=== PATIENT | male | born 1980 | race Caucasian/White ===

== ENCOUNTER 2018-09-18 23:09 | Emergency (ER) | payer MEDICARE, MEDICAID ==
[2018-09-18] MEDS ORDERED: EPINEPHrine/Lidocaine/Tetracai 3 ML ML TOP STA (23:36)
--- NOTE | 2018-09-18 23:38 | EDM.PDOC ---
ED HPI GENERAL MEDICAL PROBLEM - General Chief Complaint: Head Injury Stated Complaint: HEAD INJURY FROM FALL Time Seen by Provider: 09/18/18 23:19 Source of Information: Reports: Patient, RN Notes Reviewed, Other (2 caregivers) History Limitations: Reports: Physical Impairment - History of Present Illness INITIAL COMMENTS - FREE TEXT/NARRATIVE: The patient has a history of cerebral palsy. He lives on his own in an apartment , however, has 24-hour staff. He is unable to walk, however, he is able to crawl and get into bed on his own. According to 2 caregivers who accompany the patient to the ED, patient was attempting to get into bed tonight, when he somehow slipped and fell, likely striking the left side of his face on the bed frame. There was no loss of consciousness, although the patient may have a headache. He presents with a laceration and scratch to the left side of his face. He is otherwise uninjured. The patient's last tetanus vaccination was within 10 years. The patient's PCP is Dr. German. His Neurologist is Dr. Sweet. Left Cheek Pain Score (Numeric/FACES): 5 - Related Data Allergies Allergy/AdvReac Type Severity Reaction Status Date / Time risperidone Allergy Cannot Verified 09/18/18 23:29 Remember salsalate [Salsalate] Allergy Cannot Verified 09/18/18 23:29 Remember Home Meds: Home Meds Baclofen 20 mg PO TID 10/26/13 [History] Fosinopril Sodium 10 mg PO DAILY 10/26/13 [History] LORazepam 1 mg PO ASDIRECTED 10/26/13 [History] LORazepam 1 mg PO ASDIRECTED PRN 10/26/13 [History] Multivitamin/Iron/Folic Acid [Sentry Tablet] 1 each PO DAILY 10/26/13 [History] Nitrofurantoin Macrocrystal [Macrodantin] 50 mg PO DAILY 10/26/13 [History] PARoxetine HCl [Paxil] 40 mg PO BEDTIME 10/26/13 [History] QUEtiapine [SEROquel] 25 mg PO TID 10/26/13 [History] Tretinoin TP DAILY 10/26/13 [History] levETIRAcetam [Keppra] 1,000 mg PO ASDIRECTED 10/26/13 [History] traZODone 50 mg PO ASDIRECTED 10/26/13 [History] Magnesium Oxide 400 mg PO BID #10 tab 10/28/13 [Rx] carBAMazepine [Carbamazepine] 200 mg PO Q6H #120 10/28/13 [Rx] Past Medical History Neurological History: Reports: Cerebral Palsy, Seizure, Other (See Below) ( Microcephaly. Severe intellectual disability.) Psychiatric History: Reports: Anxiety, Other (See Below) (Disruptive, aggressive behavior) Social & Family History - Tobacco Use Smoking Status *Q: Never Smoker - Alcohol Use Alcohol Use History: No - Recreational Drug Use Recreational Drug Use: No - Living Situation & Occupation Living situation: Reports: Single, Alone (with 24-hour staff) Occupation: Disabled ED ROS GENERAL - Review of Systems Review Of Systems: ROS reveals no pertinent complaints other than HPI. ED EXAM, HEAD INJURY - Physical Exam Exam: See Below Exam Limited By: No Limitations General Appearance: Alert, WD/WN, No Apparent Distress Head: Normocephalic, Facial Lacerations (There is a 2.0 cm linear laceration within a longer linear scratch across the left side of the patient's face. The laceration is located inferior and lateral to his left high, over the lateral aspect of the zygomatic arch. No associated facial swelling. The wound is not currently bleeding.) Eyes: Bilateral Eye: EOMI, Normal Inspection Ears: Normal External Exam Nose: Normal Inspection Throat/Mouth: Normal Inspection, Normal Lips, Normal Voice, No Airway Compromise Neck: Full Range of Motion, Normal Alignment, Normal Inspection Respiratory: No Respiratory Distress, Lungs Clear, Normal Breath Sounds, No Accessory Muscle Use Cardiovascular: Normal Peripheral Pulses, Regular Rate, Rhythm, No Edema, No Gallop, No JVD, No Murmur, No Rub GI/Abdominal Exam: Normal Bowel Sounds, Soft, Non-Tender, No Organomegaly, No Distention, No Abnormal Bruit, No Mass (Male) Exam: Deferred Rectal (Males) Exam: Deferred Back Exam: Full Range of Motion, Normal Inspection, NT Extremities: Normal Inspection, Normal Capillary Refill Neurologic: Alert Skin: Normal Color, Warm/Dry ED LACERATION/WOUND & GUSTAVO PROC - Laceration/Wound Repair Left Face Lac/wound length in cm: 2.0 Appearance: Subcutaneous, Linear, Clean Distal NVT: Neuro & Vascular Intact, No Tendon Injury Anesthetic Type: Local Local Anesthesia - Lidocaine (Xylocaine): 1% with EPI (50:50 admixture) Local Anesthesia - Bupivicaine (Marcaine): 0.5% Plain (50:50 admixture) Local Anesthetic Volume: 2cc Skin Prep: Providone-Iodine (Betadine) Exploration/Debridement/Repair: Wound Explored, In a Bloodless Field, Explored to Base, No Foreign Material Found, Wound Margins Revised Closed with: Sutures Suture Size: 4-0 # of Sutures: 6 Suture Type: Nylon (Ethilon), Running, Simple Drain Placement: No Sterile Dressing Applied: None Tetanus Status Addressed: Yes Complications: No Course - Vital Signs Last Recorded V/S: Last Vital Signs Temp 36.6 C 09/18/18 23:26 Pulse 88 09/18/18 23:26 Resp 16 09/18/18 23:26 BP 134/77 09/18/18 23:26 Pulse Ox 95 09/18/18 23:26 - Orders/Labs/Meds Meds: Medications Discontinued Medications Generic Name Dose Route Start Last Admin Trade Name Shama PRGlory Reason Stop Dose Admin Bupivacaine HCl 10 ml 09/19/18 00:18 09/19/18 00:53 Sensorcaine-Mpf 0.5% INJECT 09/19/18 00:19 10 ml ONETIME ONE Administration Lidocaine/Epinephrine 20 ml 09/19/18 00:18 09/19/18 00:53 Xylocaine 1% With Epinephrine 1:100,000 INJECT 09/19/18 00:19 20 ml ONETIME ONE Administration Lidocaine/Tetracaine 2 ml 09/18/18 23:36 09/18/18 23:46 Let Soln TOP 09/18/18 23:37 2 ml ONETIME STA Administration - Re-Assessments/Exams Free Text/Narrative Re-Assessment/Exam: 09/18/18 23:37 The patient is a 2 cm laceration to the left side of his face, but will require suturing. I have ordered topical LET to hopefully avoid having to use injectable anesthetic. 09/19/18 00:43 There was inadequate anesthesia following topical LET, therefore local anesthetic, consisting of a 50:50 admixture of lidocaine 1% with epinephrine and bupivacaine 0.5% without epinephrine, was locally injected. The wound was then closed with 6 running sutures, using 4-0 Ethilon. The patient tolerated the procedure well. One of the staff members was curious whether or not the patient could have a concussion. By history, the patient fell only a short distance - likely less than a foot, therefore by mechanism alone, the patient could not have suffered a concussion. That being said, the diagnosis of concussion is a clinical, not radiographic, diagnosis, and given the patient's pre-existing impaired mental capacity, it would be very difficult, if not impossible, to determine if the patient had clinical findings of a concussion. Given the mechanism of injury and minimal physical findings, a CT scan of the head is not indicated. Departure - Departure Time of Disposition: 00:46 Disposition: Home, Self-Care 01 Condition: Good Clinical Impression: Fall in home, Laceration of face - Discharge Information *PRESCRIPTION DRUG MONITORING PROGRAM REVIEWED*: Not Applicable *COPY OF PRESCRIPTION DRUG MONITORING REPORT IN PATIENT JOSHUA: Not Applicable Instructions: Laceration Care, Adult Referrals: Carloz Clark MD [Primary Care Provider] - Forms: ED Department Discharge Additional Instructions: Kunal was seen in the emergency room after falling while getting in bed, cutting the left side of his face. The laceration was closed with 6 simple running sutures. Keep the wound clean with ordinary soap and water when he bathes, however, the wound should not be soaked, such as in a bath or swimming. We do not recommend that you apply an antibiotic ointment. You may cover the wound with a Band-Aid if he is picking at it, otherwise, it does not need to be covered. The sutures should be ready for removal on 09/26/2018. The sutures can be removed at a walk-in clinic, by a nurse at his doctor's office, or in the ER. Once his wound has completely healed, you may apply a sunblock to the wound whenever he goes outside, for 6 months, to help minimize the appearance of a scar. If any other problems, please do not hesitate to return Kunal to the ER.
[2018-09-19] MEDS ORDERED: Bupivacaine 0.5% 10 ML SDV INJECT ONE (00:18)
[2018-09-19] MEDS ORDERED: Lidocaine 1% with EPINEPHrine 1:100,000 20 ML MDV INJECT ONE (00:18)
== END 2018-09-19 01:06 | disposition home or self-care (01) ==
LOC: JD.ED 23:09
DX: S01.81XA Laceration without foreign body of other part of head, initial encounter (principal); F41.9 Anxiety disorder, unspecified; G80.9 Cerebral palsy, unspecified; Z88.8 Allergy status to other drugs, medicaments and biological substances; W06.XXXA Fall from bed, initial encounter; Z79.899 Other long term (current) drug therapy
CPT/HCPCS: 12011; 99283; J3490; 99282

== ENCOUNTER 2024-02-06 13:13 | Inpatient (IN) | payer MEDICARE, MEDICAID ==
[2024-02-06 14:55] LABS: HEMATOCRIT 41.4 % (42.0-52.0); HEMOGLOBIN 13.7 gm/dl (14.0-18.0); MEAN CORPUSCULAR HEMOGLOBIN 30.9 pg (28.0-32.0); MEAN CORPUSCULAR HGB CONC 33.1 g/dl (32.0-36.0); MEAN CORPUSCULAR VOLUME 93.5 fl (83.0-99.0); MEAN PLATELET VOLUME 10.2 fl (9.4-12.4); PLATELET COUNT,PLT 227 K/mm3 (150-400); RED BLOOD CELL COUNT 4.43 M/mm3 (4.52-5.90); WHITE BLOOD CELL COUNT,WBC 8.01 K/mm3 (3.9-11.3)
[2024-02-06 15:01] LABS: INR 0.97; PROTHROMBIN TIME 10.3 SECONDS (9.7-12.0)
[2024-02-06 15:10] LABS: CORONAVIRUS COVID-19 NAA NEGATIVE (NEGATIVE); INFLUENZA A NAA NEGATIVE (NEGATIVE); RESPIRATORY SYNCYTIAL VIR NAA NEGATIVE (NEGATIVE)
[2024-02-06 15:12] LABS: LACTIC ACID 0.5 mmol/L (0.4-2.0)
[2024-02-06 15:18] LABS: A/G RATIO 0.8 (1-2); ALBUMIN 3.2 g/dl (3.4-5.0); ANION GAP 12.3 (5-15); BILIRUBIN TOTAL 0.4 mg/dL (0.2-1.0); BUN/CREATININE RATIO 14.4 (14-18); C-REACTIVE PROTEIN 14.38 mg/dL (<0.30); CALCIUM 9.3 mg/dL (8.5-10.1); CREATININE 1.8 mg/dL (0.7-1.3); EST CRCL DRUG DOSING (CG) 47.75 mL/min; POTASSIUM,K 4.3 mEq/L (3.5-5.1); PROTEIN TOTAL,TP 7.3 g/dl (6.4-8.2)
[2024-02-06] MEDS: Sodium Chloride 0.9% 1,000 ML IV ONE (15:26)
[2024-02-06] MEDS: Sodium Chloride 0.9% 10 ML Syringe FLUSH PRN (15:27)
[2024-02-06 15:54] LABS: BAND PERCENT MAN 2 % (0-10); BASOPHILS PERCENT MAN 1 (0.2-1.2); EOSINOPHILS PERCENT MAN 0 % (0.8-7.0); LYMPHOCYTES % ATYPICAL MANUAL 0 %; LYMPHOCYTES PERCENT MAN 7 % (20-40); MONOCYTES PERCENT MAN 5 % (2-10)
[2024-02-06 16:00] LABS: PLATELET COUNT ESTIMATE ADEQUATE
[2024-02-06] MEDS: cefTRIAXone 2 GM in Sodium Chloride 0.9% 100 ML IV ONE (16:38)
[2024-02-06] MEDS ORDERED: Non-Formulary Medication 1 Each (Baclofen [Baclofen] 20 MG Tablet) PO SCH (20:00)
[2024-02-06] MEDS ORDERED: Baclofen 10 MG Tab PO SCH (20:10)
[2024-02-06] MEDS: traZODone 50 MG Tab PO SCH (20:34)
[2024-02-06] MEDS: levETIRAcetam 500 MG Tab PO SCH (20:35)
[2024-02-06] MEDS: PARoxetine 20 MG Tab PO SCH (20:35)
[2024-02-06] MEDS: QUEtiapine 25 MG Tab PO SCH (20:35)
[2024-02-06] MEDS: Baclofen 10 MG Tab PO SCH (23:28)
[2024-02-07 00:33] LABS: APPEARANCE,URINE CLEAR (Clear); BILIRUBIN,URINE NEGATIVE (Negative); COLOR,URINE YELLOW (Yellow); GLUCOSE,URINE NEGATIVE (Negative); KETONES,URINE NEGATIVE (Negative); LEUKOCYTE ESTERASE,URINE TRACE (Negative); NITRITE,URINE NEGATIVE (Negative); OCCULT BLOOD,URINE NEGATIVE (Negative); PROTEIN,URINE 2+ (Negative); UROBILINOGEN,URINE 0.2 (0.2-1.0)
[2024-02-07 00:50] LABS: BACTERIA,URINE RARE /hpf (FEW); EPITHELIAL CELLS,URINE 0-5 /hpf (0-5); MUCUS,URINE NOT SEEN /hpf (FEW); RBC,URINE NOT SEEN /hpf (0-5); WBC,URINE 0-5 /hpf (0-5)
[2024-02-07] MEDS: Levothyroxine 25 MCG Tab PO SCH (06:08)
[2024-02-07] MEDS: Baclofen 10 MG Tab PO SCH (08:13)
[2024-02-07] MEDS: Allopurinol 100 MG Tab PO SCH (09:05)
[2024-02-07] MEDS: Colchicine 0.6 MG Tab PO SCH (09:05)
[2024-02-07] MEDS: Lisinopril 10 MG Tab PO SCH (09:07)
[2024-02-07] MEDS: carBAMazepine 200 MG Tab PO SCH (09:18)
[2024-02-07 11:30] LABS: BASOPHILS PERCENT AUTO 0.3 % (0.0-1.0); EOSINOPHILS ABSOLUTE AUTO 0.1 K/mm3 (0.0-0.4); EOSINOPHILS PERCENT AUTO 0.7 % (0.0-6.0); HEMATOCRIT 37.9 % (42.0-52.0); HEMOGLOBIN 12.3 gm/dl (14.0-18.0); IMMATURE GRAN ABSOLUTE AUTO 0.04 K/mm3 (0.00-0.05); IMMATURE GRAN PERCENT AUTO 0.4 % (0.0-0.4); LYMPHOCYTES ABSOLUTE AUTO 1.2 K/mm3 (1.0-4.8); LYMPHOCYTES PERCENT AUTO 11.4 % (24.0-44.0); MEAN CORPUSCULAR HEMOGLOBIN 30.4 pg (28.0-32.0); MEAN CORPUSCULAR HGB CONC 32.5 g/dl (32.0-36.0); MEAN CORPUSCULAR VOLUME 93.6 fl (83.0-99.0); MEAN PLATELET VOLUME 9.8 fl (9.4-12.4); MONOCYTES ABSOLUTE AUTO 1.3 K/mm3 (0.0-0.8); MONOCYTES PERCENT AUTO 11.8 % (0.0-8.0); NEUTROPHILS ABSOLUTE AUTO 8.2 K/mm3 (1.8-7.7); NEUTROPHILS PERCENT AUTO 75.4 % (41.0-71.0); PLATELET COUNT,PLT 209 K/mm3 (150-400); RED BLOOD CELL COUNT 4.05 M/mm3 (4.52-5.90); WHITE BLOOD CELL COUNT,WBC 10.85 K/mm3 (3.9-11.3)
[2024-02-07] MEDS: Sodium Chloride 0.9% 1,000 ML IV ONE ×2 (11:44→21:07)
[2024-02-07 11:50] LABS: A/G RATIO 0.7 (1-2); ALBUMIN 2.6 g/dl (3.4-5.0); ANION GAP 11.1 (5-15); BILIRUBIN TOTAL 0.4 mg/dL (0.2-1.0); BUN/CREATININE RATIO 16.3 (14-18); C-REACTIVE PROTEIN 12.9 mg/dL (<0.30); CALCIUM 8.8 mg/dL (8.5-10.1); CREATININE 1.6 mg/dL (0.7-1.3); EST CRCL DRUG DOSING (CG) 53.72 mL/min; POTASSIUM,K 4.1 mEq/L (3.5-5.1); PROTEIN TOTAL,TP 6.5 g/dl (6.4-8.2)
[2024-02-07] MEDS: Acetaminophen 325 MG Tab PO ONE (15:12)
[2024-02-07] MEDS: LORazepam 2 MG/ML SDV IVPUSH ONE (16:11)
[2024-02-07] MEDS: LORazepam 2 MG/ML SDV ONE ×2 (16:30→16:31)
[2024-02-07] MEDS: cefTRIAXone 2 GM in Sodium Chloride 0.9% 100 ML IV SCH (16:38)
[2024-02-07 16:40] LABS: BASOPHILS ABSOLUTE AUTO 0.1 K/mm3 (0.0-0.2); BASOPHILS PERCENT AUTO 0.5 % (0.0-1.0); EOSINOPHILS ABSOLUTE AUTO 0.2 K/mm3 (0.0-0.4); EOSINOPHILS PERCENT AUTO 1.3 % (0.0-6.0); HEMATOCRIT 39.9 % (42.0-52.0); HEMOGLOBIN 12.8 gm/dl (14.0-18.0); IMMATURE GRAN ABSOLUTE AUTO 0.06 K/mm3 (0.00-0.05); IMMATURE GRAN PERCENT AUTO 0.4 % (0.0-0.4); LYMPHOCYTES ABSOLUTE AUTO 2.5 K/mm3 (1.0-4.8); LYMPHOCYTES PERCENT AUTO 17.9 % (24.0-44.0); MEAN CORPUSCULAR HEMOGLOBIN 30.5 pg (28.0-32.0); MEAN CORPUSCULAR HGB CONC 32.1 g/dl (32.0-36.0); MEAN PLATELET VOLUME 9.7 fl (9.4-12.4); MONOCYTES ABSOLUTE AUTO 1.5 K/mm3 (0.0-0.8); MONOCYTES PERCENT AUTO 10.9 % (0.0-8.0); NEUTROPHILS ABSOLUTE AUTO 9.8 K/mm3 (1.8-7.7); PLATELET COUNT,PLT 239 K/mm3 (150-400); WHITE BLOOD CELL COUNT,WBC 14.18 K/mm3 (3.9-11.3)
[2024-02-07 17:14] LABS: A/G RATIO 0.7 (1-2); ALBUMIN 2.8 g/dl (3.4-5.0); ANION GAP 20.8 (5-15); BILIRUBIN TOTAL 0.4 mg/dL (0.2-1.0); CALCIUM 8.9 mg/dL (8.5-10.1); EST CRCL DRUG DOSING (CG) 42.98 mL/min; POTASSIUM,K 3.8 mEq/L (3.5-5.1); PROTEIN TOTAL,TP 6.7 g/dl (6.4-8.2)
[2024-02-07] MEDS: Sodium Chloride 0.9% 500 ML IV ONE (18:45)
[2024-02-07] MEDS: Acetaminophen 325 MG Tab PO PRN (23:27)
[2024-02-07] MEDS: Doxycycline 100 MG in Sodium Chloride 0.9% 100 ML IV SCH (23:35)
[2024-02-07] MEDS: Sodium Chloride 0.9% 1,000 ML IV SCH (23:38)
[2024-02-08] MEDS: Albuterol/Ipratropium 3.0-0.5 MG/3 ML Neb Soln NEB PRN (00:22)
[2024-02-08] MEDS ORDERED: LORazepam 2 MG/ML SDV IVPUSH PRN ×2 (01:59→09:37)
[2024-02-08] MEDS: Acetaminophen 325 MG Tab PO ONE (02:14)
[2024-02-08 04:52] LABS: BASOPHILS PERCENT AUTO 0.3 % (0.0-1.0); EOSINOPHILS ABSOLUTE AUTO 0.2 K/mm3 (0.0-0.4); EOSINOPHILS PERCENT AUTO 1.9 % (0.0-6.0); HEMATOCRIT 36.1 % (42.0-52.0); HEMOGLOBIN 11.6 gm/dl (14.0-18.0); IMMATURE GRAN ABSOLUTE AUTO 0.05 K/mm3 (0.00-0.05); IMMATURE GRAN PERCENT AUTO 0.4 % (0.0-0.4); LYMPHOCYTES ABSOLUTE AUTO 1.6 K/mm3 (1.0-4.8); LYMPHOCYTES PERCENT AUTO 13.7 % (24.0-44.0); MEAN CORPUSCULAR HEMOGLOBIN 30.4 pg (28.0-32.0); MEAN CORPUSCULAR HGB CONC 32.1 g/dl (32.0-36.0); MEAN CORPUSCULAR VOLUME 94.5 fl (83.0-99.0); MEAN PLATELET VOLUME 10.4 fl (9.4-12.4); MONOCYTES ABSOLUTE AUTO 1.4 K/mm3 (0.0-0.8); MONOCYTES PERCENT AUTO 11.8 % (0.0-8.0); NEUTROPHILS ABSOLUTE AUTO 8.6 K/mm3 (1.8-7.7); NEUTROPHILS PERCENT AUTO 71.9 % (41.0-71.0); PLATELET COUNT,PLT 180 K/mm3 (150-400); RED BLOOD CELL COUNT 3.82 M/mm3 (4.52-5.90); WHITE BLOOD CELL COUNT,WBC 11.99 K/mm3 (3.9-11.3)
[2024-02-08 05:20] LABS: A/G RATIO 0.7 (1-2); ALBUMIN 2.4 g/dl (3.4-5.0); ANION GAP 12.8 (5-15); BILIRUBIN TOTAL 0.4 mg/dL (0.2-1.0); BUN/CREATININE RATIO 15.6 (14-18); CALCIUM 8.2 mg/dL (8.5-10.1); CREATININE 1.6 mg/dL (0.7-1.3); EST CRCL DRUG DOSING (CG) 53.72 mL/min; POTASSIUM,K 3.8 mEq/L (3.5-5.1); PROTEIN TOTAL,TP 6.1 g/dl (6.4-8.2)
[2024-02-08] MEDS: Polyethylene Glycol 3350 Powder 17 GM Packet PO SCH (09:00)
[2024-02-08] MEDS: guaiFENesin 600 MG Tab.ER PO SCH (09:01)
[2024-02-08] MEDS: Sodium Chloride 0.9% 10 ML Syringe FLUSH SCH (10:20)
[2024-02-08] MEDS: Gadobenate Dimeglumine 529 MG/ML 15 ML SDV IVPUSH ONE (10:20)
[2024-02-08] MEDS: VANCOmycin 1.5 GM/300 ML 1.5 GM in Premix Bag 1 BAG IV ONE (11:14)
[2024-02-08] MEDS: cefTRIAXone 2 GM in Sodium Chloride 0.9% 100 ML IV SCH (11:15)
[2024-02-08] MEDS: Enoxaparin 40 MG/0.4 ML Syringe SUBCUT SCH (13:36)
[2024-02-08] MEDS: Potassium Chloride 20 MEQ Tab.ER PO ONE (14:39)
[2024-02-08] MEDS: Acetaminophen 650 MG Supp RECTAL ONE (14:40)
[2024-02-08] MEDS ORDERED: Cyproheptadine 4 MG Tab PO SCH (15:00)
[2024-02-08] MEDS: LORazepam 2 MG/ML SDV IVPUSH PRN (21:31)
[2024-02-08] MEDS: VANCOmycin 750 MG/150 ML 750 MG in Premix Bag 1 BAG IV SCH (22:31)
[2024-02-09 06:29] LABS: BASOPHILS ABSOLUTE AUTO 0.1 K/mm3 (0.0-0.2); BASOPHILS PERCENT AUTO 0.5 % (0.0-1.0); EOSINOPHILS ABSOLUTE AUTO 0.4 K/mm3 (0.0-0.4); EOSINOPHILS PERCENT AUTO 4.2 % (0.0-6.0); HEMATOCRIT 38.5 % (42.0-52.0); HEMOGLOBIN 12.2 gm/dl (14.0-18.0); IMMATURE GRAN ABSOLUTE AUTO 0.07 K/mm3 (0.00-0.05); IMMATURE GRAN PERCENT AUTO 0.7 % (0.0-0.4); LYMPHOCYTES ABSOLUTE AUTO 1.4 K/mm3 (1.0-4.8); MEAN CORPUSCULAR HGB CONC 31.7 g/dl (32.0-36.0); MEAN CORPUSCULAR VOLUME 94.6 fl (83.0-99.0); MEAN PLATELET VOLUME 9.9 fl (9.4-12.4); MONOCYTES ABSOLUTE AUTO 1.3 K/mm3 (0.0-0.8); MONOCYTES PERCENT AUTO 13.1 % (0.0-8.0); NEUTROPHILS ABSOLUTE AUTO 6.6 K/mm3 (1.8-7.7); NEUTROPHILS PERCENT AUTO 67.5 % (41.0-71.0); PLATELET COUNT,PLT 215 K/mm3 (150-400); RED BLOOD CELL COUNT 4.07 M/mm3 (4.52-5.90); WHITE BLOOD CELL COUNT,WBC 9.77 K/mm3 (3.9-11.3)
[2024-02-09 06:37] LABS: INR 1.05; PROTHROMBIN TIME 11.1 SECONDS (9.7-12.0)
[2024-02-09 06:45] LABS: A/G RATIO 0.6 (1-2); ALBUMIN 2.3 g/dl (3.4-5.0); ANION GAP 16.3 (5-15); BILIRUBIN TOTAL 0.3 mg/dL (0.2-1.0); BUN/CREATININE RATIO 12.9 (14-18); CREATININE 1.4 mg/dL (0.7-1.3); EST CRCL DRUG DOSING (CG) 61.39 mL/min; MAGNESIUM 1.6 mg/dL (1.8-2.4); PHOSPHORUS 3.4 mg/dL (2.6-4.7); POTASSIUM,K 4.3 mEq/L (3.5-5.1); PROTEIN TOTAL,TP 6.2 g/dl (6.4-8.2); VANCOMYCIN RANDOM 20.5 ug/mL
[2024-02-09] MEDS: Enoxaparin 40 MG/0.4 ML Syringe SUBCUT SCH (10:56)
[2024-02-09] MEDS: Magnesium Sulfate/Water 4 GM in Premix Bag 1 BAG IV ONE (20:59)
[2024-02-09] MEDS: carBAMazepine 200 MG Tab PO SCH (20:59)
[2024-02-09] MEDS: levETIRAcetam 500 MG Tab PO SCH (20:59)
[2024-02-09 21:41] LABS: KEPPRA 33 ug/mL (10-40)
[2024-02-10 04:49] LABS: BASOPHILS ABSOLUTE AUTO 0.1 K/mm3 (0.0-0.2); BASOPHILS PERCENT AUTO 0.7 % (0.0-1.0); EOSINOPHILS ABSOLUTE AUTO 0.4 K/mm3 (0.0-0.4); EOSINOPHILS PERCENT AUTO 5.7 % (0.0-6.0); HEMATOCRIT 38.6 % (42.0-52.0); HEMOGLOBIN 12.5 gm/dl (14.0-18.0); IMMATURE GRAN ABSOLUTE AUTO 0.11 K/mm3 (0.00-0.05); IMMATURE GRAN PERCENT AUTO 1.5 % (0.0-0.4); LYMPHOCYTES ABSOLUTE AUTO 1.8 K/mm3 (1.0-4.8); LYMPHOCYTES PERCENT AUTO 23.7 % (24.0-44.0); MEAN CORPUSCULAR HEMOGLOBIN 29.8 pg (28.0-32.0); MEAN CORPUSCULAR HGB CONC 32.4 g/dl (32.0-36.0); MEAN CORPUSCULAR VOLUME 91.9 fl (83.0-99.0); MEAN PLATELET VOLUME 10.1 fl (9.4-12.4); MONOCYTES ABSOLUTE AUTO 0.9 K/mm3 (0.0-0.8); MONOCYTES PERCENT AUTO 12.7 % (0.0-8.0); NEUTROPHILS ABSOLUTE AUTO 4.1 K/mm3 (1.8-7.7); NEUTROPHILS PERCENT AUTO 55.7 % (41.0-71.0); PLATELET COUNT,PLT 270 K/mm3 (150-400); WHITE BLOOD CELL COUNT,WBC 7.42 K/mm3 (3.9-11.3)
[2024-02-10 05:10] LABS: ANION GAP 12.8 (5-15); CREATININE 1.2 mg/dL (0.7-1.3); EST CRCL DRUG DOSING (CG) 71.63 mL/min; MAGNESIUM 2.8 mg/dL (1.8-2.4); POTASSIUM,K 3.8 mEq/L (3.5-5.1)
[2024-02-10] MEDS: carBAMazepine 200 MG Tab PO SCH (09:09)
[2024-02-10] MEDS: LORazepam 2 MG/ML SDV IVPUSH PRN (09:56)
[2024-02-10] MEDS: Potassium Chloride 20 MEQ Tab.ER PO ONE ×2 (12:18→13:04)
== END 2024-02-10 16:35 | disposition home or self-care (01) | DRG 871 ==
LOC: JD.ED 13:13 → JD.MS 02-07 16:23
PROVIDERS: ADMIT Family Medicine; ATTEND Family Medicine
DX: A41.9 Sepsis, unspecified organism (principal); G93.41 Metabolic encephalopathy; Z88.6 Allergy status to analgesic agent; J18.9 Pneumonia, unspecified organism; J96.01 Acute respiratory failure with hypoxia; N17.9 Acute kidney failure, unspecified; M10.9 Gout, unspecified; Z66 Do not resuscitate; R65.20 Severe sepsis without septic shock; I12.9 Hypertensive chronic kidney disease with stage 1 through stage 4 chronic kidney disease, or unspecified chronic kidney disease; N18.32 Chronic kidney disease, stage 3b; R53.81 Other malaise; G80.9 Cerebral palsy, unspecified; F41.9 Anxiety disorder, unspecified; G40.909 Epilepsy, unspecified, not intractable, without status epilepticus; E03.9 Hypothyroidism, unspecified; Z88.8 Allergy status to other drugs, medicaments and biological substances; Z79.890 Hormone replacement therapy
CPT/HCPCS: 0241U; 36415; 70553; 71045; 71046; 71250; 74176; 80048; 80053; 80156; 80177; 80202; 81001; 82550; 82947; 83605; 83690; 83735; 84100; 84443; 85007; 85025; 85027; 85610; 86140; 87040; 87641; 87899; 94640; 94667; 94668; 94761; 96360; 97116; 97161; 97530; 99285; 99223; 99233; 99239; A9270-GY; A9577; C1758; J0696; J1650; J2060; J3372; J3475; J3490; J7030; J7620-GY

== ENCOUNTER 2024-02-14 10:36 | Emergency (ER) | payer MEDICARE, MEDICAID ==
[2024-02-14 11:20] LABS: BASOPHILS ABSOLUTE AUTO 0.1 K/mm3 (0.0-0.2); BASOPHILS PERCENT AUTO 0.8 % (0.0-1.0); EOSINOPHILS ABSOLUTE AUTO 0.2 K/mm3 (0.0-0.4); EOSINOPHILS PERCENT AUTO 0.9 % (0.0-6.0); HEMATOCRIT 41.3 % (42.0-52.0); HEMOGLOBIN 13.3 gm/dl (14.0-18.0); IMMATURE GRAN ABSOLUTE AUTO 0.66 K/mm3 (0.00-0.05); IMMATURE GRAN PERCENT AUTO 3.9 % (0.0-0.4); LYMPHOCYTES ABSOLUTE AUTO 2.4 K/mm3 (1.0-4.8); LYMPHOCYTES PERCENT AUTO 14.4 % (24.0-44.0); MEAN CORPUSCULAR HEMOGLOBIN 30.2 pg (28.0-32.0); MEAN CORPUSCULAR HGB CONC 32.2 g/dl (32.0-36.0); MEAN CORPUSCULAR VOLUME 93.7 fl (83.0-99.0); MEAN PLATELET VOLUME 9.4 fl (9.4-12.4); MONOCYTES ABSOLUTE AUTO 1.6 K/mm3 (0.0-0.8); MONOCYTES PERCENT AUTO 9.4 % (0.0-8.0); NEUTROPHILS ABSOLUTE AUTO 11.9 K/mm3 (1.8-7.7); NEUTROPHILS PERCENT AUTO 70.6 % (41.0-71.0); PLATELET COUNT,PLT 479 K/mm3 (150-400); RED BLOOD CELL COUNT 4.41 M/mm3 (4.52-5.90); WHITE BLOOD CELL COUNT,WBC 16.89 K/mm3 (3.9-11.3)
[2024-02-14 11:49] LABS: SLIDE REVIEW ABNORMAL SMEAR
[2024-02-14 11:50] LABS: A/G RATIO 0.8 (1-2); ALBUMIN 3.3 g/dl (3.4-5.0); ANION GAP 17.8 (5-15); BILIRUBIN TOTAL 0.5 mg/dL (0.2-1.0); BUN/CREATININE RATIO 15.3 (14-18); CREATININE 1.5 mg/dL (0.7-1.3); EST CRCL DRUG DOSING (CG) 59.37 mL/min; MAGNESIUM 2.3 mg/dL (1.8-2.4); POTASSIUM,K 4.8 mEq/L (3.5-5.1); PROTEIN TOTAL,TP 7.6 g/dl (6.4-8.2); TSH 1.41 uIU/mL (0.358-3.74)
[2024-02-14] MEDS ORDERED: Iopamidol 612 MG/ML 100 ML Bottle IVPUSH ONE (11:55)
[2024-02-14] MEDS: Sodium Chloride 0.9% 10 ML Syringe FLUSH PRN ×2 (12:09→15:06)
[2024-02-14] MEDS: Sodium Chloride 0.9% 1,000 ML IV ONE (12:09)
[2024-02-14] MEDS ORDERED: Iopamidol 755 Mg/ML 100 ML Bottle IVPUSH ONE (12:16)
[2024-02-14] MEDS ORDERED: Naloxone 0.4 MG/ML SDV IVPUSH PRN (14:18)
[2024-02-14] MEDS: Baclofen 10 MG Tab PO ONE (15:05)
[2024-02-14] MEDS: HYDROmorphone 0.5 MG/0.5 ML Syringe IVPUSH ONE (15:06)
[2024-02-14 15:48] LABS: APPEARANCE,URINE CLEAR (Clear); BILIRUBIN,URINE NEGATIVE (Negative); COLOR,URINE YELLOW (Yellow); GLUCOSE,URINE NEGATIVE (Negative); KETONES,URINE NEGATIVE (Negative); LEUKOCYTE ESTERASE,URINE NEGATIVE (Negative); NITRITE,URINE NEGATIVE (Negative); OCCULT BLOOD,URINE TRACE-INTACT (Negative); PROTEIN,URINE 2+ (Negative); UROBILINOGEN,URINE 0.2 (0.2-1.0)
[2024-02-14 16:13] LABS: RBC,URINE 0-5 /hpf (0-5); WBC,URINE 0-5 /hpf (0-5)
[2024-02-14 16:14] LABS: BACTERIA,URINE FEW /hpf (FEW); MUCUS,URINE FEW /hpf (FEW); SQUAMOUS EPITHELIAL CELLS,UR 0-5 /hpf (0-5)
[2024-02-14] MEDS: LORazepam 1 MG Tab PO ONE (16:33)
== END 2024-02-14 16:35 | disposition home or self-care (01) ==
LOC: JD.ED 10:36
DX: M79.10 Myalgia, unspecified site (principal); Z88.8 Allergy status to other drugs, medicaments and biological substances; Z79.899 Other long term (current) drug therapy
CPT/HCPCS: 36415; 71045; 71260; 74177; 80053; 81001; 83690; 83735; 84443; 85025; 86140; 96361; 96374; 99284; A9270; J1170; J3490; J7030

== ENCOUNTER 2024-02-15 11:11 | Inpatient (IN) | payer MEDICARE, MEDICAID ==
[2024-02-15] MEDS ORDERED: Naloxone 0.4 MG/ML SDV IVPUSH PRN ×2 (11:35→15:50)
[2024-02-15] MEDS: fentaNYL 100 MCG/2 ML SDV IVPUSH ONE ×2 (11:49→16:26)
[2024-02-15 11:56] LABS: BASOPHILS ABSOLUTE AUTO 0.1 K/mm3 (0.0-0.2); BASOPHILS PERCENT AUTO 0.9 % (0.0-1.0); EOSINOPHILS ABSOLUTE AUTO 0.3 K/mm3 (0.0-0.4); EOSINOPHILS PERCENT AUTO 2.2 % (0.0-6.0); HEMOGLOBIN 12.8 gm/dl (14.0-18.0); IMMATURE GRAN ABSOLUTE AUTO 0.64 K/mm3 (0.00-0.05); IMMATURE GRAN PERCENT AUTO 4.8 % (0.0-0.4); LYMPHOCYTES ABSOLUTE AUTO 3.4 K/mm3 (1.0-4.8); LYMPHOCYTES PERCENT AUTO 25.2 % (24.0-44.0); MEAN CORPUSCULAR HEMOGLOBIN 30.3 pg (28.0-32.0); MEAN CORPUSCULAR VOLUME 94.6 fl (83.0-99.0); MEAN PLATELET VOLUME 9.4 fl (9.4-12.4); MONOCYTES ABSOLUTE AUTO 1.1 K/mm3 (0.0-0.8); MONOCYTES PERCENT AUTO 8.5 % (0.0-8.0); NEUTROPHILS ABSOLUTE AUTO 7.8 K/mm3 (1.8-7.7); NEUTROPHILS PERCENT AUTO 58.4 % (41.0-71.0); PLATELET COUNT,PLT 458 K/mm3 (150-400); RED BLOOD CELL COUNT 4.23 M/mm3 (4.52-5.90); WHITE BLOOD CELL COUNT,WBC 13.41 K/mm3 (3.9-11.3)
[2024-02-15 12:29] LABS: A/G RATIO 0.8 (1-2); ALANINE AMINOTRANSFERASE,ALT 134 U/L (16-63); ALBUMIN 3.1 g/dl (3.4-5.0); ALKALINE PHOSPHATASE 116 U/L (46-116); ANION GAP 15.4 (5-15); ASPARTATE AMNIOTRANSFERASE,AST 82 U/L (15-37); BILIRUBIN TOTAL 0.4 mg/dL (0.2-1.0); BLOOD UREA NITROGEN,BUN 20 mg/dL (7-18); BUN/CREATININE RATIO 13.3 (14-18); CALCIUM 9.4 mg/dL (8.5-10.1); CARBON DIOXIDE,CO2 23 mEq/L (21-32); CHLORIDE,CL 109 mEq/L (98-107); CREATININE 1.5 mg/dL (0.7-1.3); ESTIMATED GFR 59 mL/min (>60); GLUCOSE RANDOM 84 mg/dL (70-99); POTASSIUM,K 4.4 mEq/L (3.5-5.1); PROTEIN TOTAL,TP 7.2 g/dl (6.4-8.2); SODIUM,NA 143 mEq/L (136-145); URIC ACID 7.7 mg/dL (3.5-7.2)
[2024-02-15] MEDS: Sodium Chloride 0.45% 1,000 ML IV SCH (12:54)
[2024-02-15 13:26] LABS: SLIDE REVIEW ABNORMAL SMEAR
[2024-02-15] MEDS ORDERED: Non-Formulary Medication 1 Each (Baclofen [Baclofen] 20 MG Tablet) PO SCH (17:00)
[2024-02-15] MEDS: QUEtiapine 25 MG Tab PO SCH (18:13)
[2024-02-15] MEDS: Baclofen 10 MG Tab PO ONE ×3 (18:18→21:47)
[2024-02-15] MEDS ORDERED: LORazepam 1 MG Tab PO PRN ×4 (20:42→20:56)
[2024-02-15] MEDS ORDERED: carBAMazepine 200 MG Tab PO SCH (21:00)
[2024-02-15] MEDS: carBAMazepine 200 MG Tab PO ONE (21:47)
[2024-02-15] MEDS: levETIRAcetam 500 MG Tab PO ONE (21:47)
[2024-02-15] MEDS: carBAMazepine 200 MG Tab PO SCH (22:09)
[2024-02-15] MEDS: Non-Formulary Medication 1 Each (Levetiracetam [Keppra] 1,000 MG Tablet) PO SCH (22:09)
[2024-02-16] MEDS: Acetaminophen 325 MG Tab PO PRN (01:17)
[2024-02-16] MEDS: Levothyroxine 25 MCG Tab PO SCH (05:01)
[2024-02-16 08:30] LABS: BASOPHILS ABSOLUTE AUTO 0.1 K/mm3 (0.0-0.2); BASOPHILS PERCENT AUTO 0.8 % (0.0-1.0); EOSINOPHILS ABSOLUTE AUTO 0.3 K/mm3 (0.0-0.4); EOSINOPHILS PERCENT AUTO 2.3 % (0.0-6.0); HEMATOCRIT 40.1 % (42.0-52.0); IMMATURE GRAN ABSOLUTE AUTO 0.47 K/mm3 (0.00-0.05); IMMATURE GRAN PERCENT AUTO 3.6 % (0.0-0.4); LYMPHOCYTES ABSOLUTE AUTO 3.2 K/mm3 (1.0-4.8); LYMPHOCYTES PERCENT AUTO 24.1 % (24.0-44.0); MEAN CORPUSCULAR HEMOGLOBIN 30.4 pg (28.0-32.0); MEAN CORPUSCULAR HGB CONC 32.4 g/dl (32.0-36.0); MEAN CORPUSCULAR VOLUME 93.7 fl (83.0-99.0); MEAN PLATELET VOLUME 9.5 fl (9.4-12.4); MONOCYTES ABSOLUTE AUTO 1.1 K/mm3 (0.0-0.8); MONOCYTES PERCENT AUTO 8.2 % (0.0-8.0); NEUTROPHILS ABSOLUTE AUTO 8.1 K/mm3 (1.8-7.7); PLATELET COUNT,PLT 441 K/mm3 (150-400); RED BLOOD CELL COUNT 4.28 M/mm3 (4.52-5.90); WHITE BLOOD CELL COUNT,WBC 13.22 K/mm3 (3.9-11.3)
[2024-02-16] MEDS: Baclofen 10 MG Tab PO SCH ×2 (08:39→20:08)
[2024-02-16] MEDS: Colchicine 0.6 MG Tab PO SCH (08:40)
[2024-02-16] MEDS: Enoxaparin 40 MG/0.4 ML Syringe SUBCUT SCH (08:41)
[2024-02-16 09:09] LABS: A/G RATIO 0.8 (1-2); ALBUMIN 3.1 g/dl (3.4-5.0); ANION GAP 15.3 (5-15); BILIRUBIN TOTAL 0.4 mg/dL (0.2-1.0); BUN/CREATININE RATIO 12.3 (14-18); CALCIUM 9.4 mg/dL (8.5-10.1); CREATININE 1.3 mg/dL (0.7-1.3); EST CRCL DRUG DOSING (CG) 63.73 mL/min; POTASSIUM,K 4.3 mEq/L (3.5-5.1); PROTEIN TOTAL,TP 7.1 g/dl (6.4-8.2)
[2024-02-16] MEDS: LORazepam 1 MG Tab PO ONE (09:20)
[2024-02-16] MEDS ORDERED: oxyCODONE 5 MG Tab PO PRN (12:02)
[2024-02-16] MEDS: HYDROmorphone 0.5 MG/0.5 ML Syringe IVPUSH PRN (12:09)
[2024-02-16] MEDS: levETIRAcetam 500 MG Tab PO SCH (12:22)
[2024-02-16] MEDS: Diazepam 5 MG Tab PO SCH (12:22)
[2024-02-16] MEDS: carBAMazepine 200 MG Tab PO SCH (12:22)
[2024-02-16 13:40] LABS: APPEARANCE,URINE CLEAR (Clear); BILIRUBIN,URINE NEGATIVE (Negative); COLOR,URINE YELLOW (Yellow); GLUCOSE,URINE NEGATIVE (Negative); KETONES,URINE TRACE (Negative); LEUKOCYTE ESTERASE,URINE NEGATIVE (Negative); NITRITE,URINE NEGATIVE (Negative); OCCULT BLOOD,URINE NEGATIVE (Negative); PH,URINE 5.5 (5.0-8.0); PROTEIN,URINE 2+ (Negative); UROBILINOGEN,URINE 0.2 (0.2-1.0)
[2024-02-16 14:16] LABS: BACTERIA,URINE FEW /hpf (FEW); MUCUS,URINE FEW /hpf (FEW); RBC,URINE 0-5 /hpf (0-5); SQUAMOUS EPITHELIAL CELLS,UR 0-5 /hpf (0-5); WBC,URINE 0-5 /hpf (0-5)
[2024-02-16] MEDS: Acetaminophen 325 MG Tab PO SCH (15:42)
[2024-02-16] MEDS: Naproxen 500 MG Tab PO SCH (20:08)
[2024-02-16] MEDS: Lactated Ringers 1,000 ML IV SCH (20:31)
[2024-02-17 05:26] LABS: BASOPHILS ABSOLUTE AUTO 0.1 K/mm3 (0.0-0.2); BASOPHILS PERCENT AUTO 0.5 % (0.0-1.0); EOSINOPHILS ABSOLUTE AUTO 0.2 K/mm3 (0.0-0.4); EOSINOPHILS PERCENT AUTO 2.1 % (0.0-6.0); HEMATOCRIT 37.3 % (42.0-52.0); HEMOGLOBIN 12.1 gm/dl (14.0-18.0); IMMATURE GRAN ABSOLUTE AUTO 0.19 K/mm3 (0.00-0.05); IMMATURE GRAN PERCENT AUTO 1.6 % (0.0-0.4); LYMPHOCYTES PERCENT AUTO 17.1 % (24.0-44.0); MEAN CORPUSCULAR HEMOGLOBIN 30.8 pg (28.0-32.0); MEAN CORPUSCULAR HGB CONC 32.4 g/dl (32.0-36.0); MEAN CORPUSCULAR VOLUME 94.9 fl (83.0-99.0); MEAN PLATELET VOLUME 9.8 fl (9.4-12.4); MONOCYTES PERCENT AUTO 8.3 % (0.0-8.0); NEUTROPHILS ABSOLUTE AUTO 8.2 K/mm3 (1.8-7.7); NEUTROPHILS PERCENT AUTO 70.4 % (41.0-71.0); PLATELET COUNT,PLT 389 K/mm3 (150-400); RED BLOOD CELL COUNT 3.93 M/mm3 (4.52-5.90); WHITE BLOOD CELL COUNT,WBC 11.58 K/mm3 (3.9-11.3)
[2024-02-17 05:35] LABS: A/G RATIO 0.8 (1-2); ALBUMIN 2.7 g/dl (3.4-5.0); ANION GAP 13.9 (5-15); BILIRUBIN TOTAL 0.4 mg/dL (0.2-1.0); C-REACTIVE PROTEIN 7.59 mg/dL (<0.30); CALCIUM 8.9 mg/dL (8.5-10.1); CREATININE 1.6 mg/dL (0.7-1.3); EST CRCL DRUG DOSING (CG) 51.78 mL/min; POTASSIUM,K 3.9 mEq/L (3.5-5.1); PROTEIN TOTAL,TP 6.3 g/dl (6.4-8.2)
[2024-02-17] MEDS: oxyCODONE 5 MG Tab PO PRN (06:06)
[2024-02-17] MEDS: Polyethylene Glycol 3350 Powder 17 GM Packet PO SCH (11:54)
[2024-02-17] MEDS: Diazepam 2 MG Tab PO SCH (14:07)
[2024-02-18 06:09] LABS: BASOPHILS ABSOLUTE AUTO 0.1 K/mm3 (0.0-0.2); BASOPHILS PERCENT AUTO 0.7 % (0.0-1.0); EOSINOPHILS ABSOLUTE AUTO 0.1 K/mm3 (0.0-0.4); EOSINOPHILS PERCENT AUTO 1.4 % (0.0-6.0); HEMATOCRIT 43.7 % (42.0-52.0); IMMATURE GRAN ABSOLUTE AUTO 0.12 K/mm3 (0.00-0.05); IMMATURE GRAN PERCENT AUTO 1.4 % (0.0-0.4); LYMPHOCYTES ABSOLUTE AUTO 1.9 K/mm3 (1.0-4.8); LYMPHOCYTES PERCENT AUTO 21.5 % (24.0-44.0); MEAN CORPUSCULAR HEMOGLOBIN 30.1 pg (28.0-32.0); MEAN PLATELET VOLUME 9.4 fl (9.4-12.4); MONOCYTES ABSOLUTE AUTO 0.5 K/mm3 (0.0-0.8); MONOCYTES PERCENT AUTO 5.3 % (0.0-8.0); NEUTROPHILS PERCENT AUTO 69.7 % (41.0-71.0); PLATELET COUNT,PLT 451 K/mm3 (150-400); RED BLOOD CELL COUNT 4.65 M/mm3 (4.52-5.90)
[2024-02-18 06:42] LABS: A/G RATIO 0.8 (1-2); ALBUMIN 3.1 g/dl (3.4-5.0); ANION GAP 13.6 (5-15); BILIRUBIN TOTAL 0.4 mg/dL (0.2-1.0); C-REACTIVE PROTEIN 5.74 mg/dL (<0.30); CALCIUM 9.5 mg/dL (8.5-10.1); CREATININE 1.5 mg/dL (0.7-1.3); EST CRCL DRUG DOSING (CG) 55.24 mL/min; POTASSIUM,K 4.6 mEq/L (3.5-5.1)
[2024-02-18] MEDS: LORazepam 1 MG Tab PO PRN (13:16)
[2024-02-18] MEDS: Ondansetron 4 MG Tab.DIS PO PRN (21:47)
[2024-02-19] MEDS: Baclofen 10 MG Tab PO SCH (08:13)
[2024-02-19 08:39] LABS: A/G RATIO 0.7 (1-2); ALBUMIN 2.5 g/dl (3.4-5.0); ANION GAP 11.7 (5-15); BILIRUBIN TOTAL 0.2 mg/dL (0.2-1.0); BUN/CREATININE RATIO 10.8 (14-18); CALCIUM 8.9 mg/dL (8.5-10.1); CREATININE 1.2 mg/dL (0.7-1.3); EST CRCL DRUG DOSING (CG) 69.05 mL/min; POTASSIUM,K 4.7 mEq/L (3.5-5.1); PROTEIN TOTAL,TP 6.1 g/dl (6.4-8.2)
[2024-02-19] MEDS: Docusate Sodium 100 MG Cap PO SCH (11:10)
[2024-02-19] MEDS: Acetaminophen 325 MG Tab PO PRN (15:58)
[2024-02-19 16:41] LABS: ANA BY ELISA, IGG W/RFX TO IFA None Detected (None Detected)
== END 2024-02-28 10:03 | DRG 57 ==
LOC: JD.ED 11:11 → JD.MS 16:47 → OBSVTOIN 02-17 14:48
PROVIDERS: ADMIT Family Medicine; ATTEND Student in an Organized Health Care Education/Training Program
DX: R53.1 Weakness (principal); G80.3 Athetoid cerebral palsy; G80.1 Spastic diplegic cerebral palsy; F41.9 Anxiety disorder, unspecified; I10 Essential (primary) hypertension; Z66 Do not resuscitate; E03.9 Hypothyroidism, unspecified; G40.309 Generalized idiopathic epilepsy and epileptic syndromes, not intractable, without status epilepticus; M1A.9XX0 Chronic gout, unspecified, without tophus (tophi); Z88.8 Allergy status to other drugs, medicaments and biological substances; Z79.899 Other long term (current) drug therapy; Z79.890 Hormone replacement therapy
CPT/HCPCS: 36415 ×3; 73560; 80053 ×3; 81001; 82550; 84550; 85025 ×3; 85652; 86038; 86140 ×2; 96361; 96374; 96376; 99284; A9270 ×38; J1170; J1650 ×2; J3010 ×2; J7030; J7120 ×2; 51798; 96372; 96375; 97110-GP; 97162-GP; 97530-GP; 99223; 99231; 99232; 99233; 99239; G0378

== ENCOUNTER 2024-08-30 13:52 | Emergency (ER) | payer MEDICARE, MEDICAID ==
[2024-08-30] MEDS ORDERED: Sodium Chloride 0.9% 10 ML Syringe FLUSH PRN (14:31)
[2024-08-30 15:14] LABS: BASOPHILS PERCENT AUTO 0.2 % (0.0-1.0); EOSINOPHILS ABSOLUTE AUTO 0.1 K/mm3 (0.0-0.4); EOSINOPHILS PERCENT AUTO 0.5 % (0.0-6.0); HEMOGLOBIN 15.8 gm/dl (14.0-18.0); IMMATURE GRAN ABSOLUTE AUTO 0.04 K/mm3 (0.00-0.05); IMMATURE GRAN PERCENT AUTO 0.3 % (0.0-0.4); LYMPHOCYTES ABSOLUTE AUTO 0.5 K/mm3 (1.0-4.8); LYMPHOCYTES PERCENT AUTO 3.8 % (24.0-44.0); MEAN CORPUSCULAR HEMOGLOBIN 30.1 pg (28.0-32.0); MEAN CORPUSCULAR HGB CONC 32.9 g/dl (32.0-36.0); MEAN CORPUSCULAR VOLUME 91.4 fl (83.0-99.0); MEAN PLATELET VOLUME 9.8 fl (9.4-12.4); MONOCYTES ABSOLUTE AUTO 0.7 K/mm3 (0.0-0.8); MONOCYTES PERCENT AUTO 5.5 % (0.0-8.0); NEUTROPHILS ABSOLUTE AUTO 11.6 K/mm3 (1.8-7.7); NEUTROPHILS PERCENT AUTO 89.7 % (41.0-71.0); PLATELET COUNT,PLT 226 K/mm3 (150-400); RED BLOOD CELL COUNT 5.25 M/mm3 (4.52-5.90); WHITE BLOOD CELL COUNT,WBC 12.88 K/mm3 (3.9-11.3)
[2024-08-30 15:40] LABS: A/G RATIO 1.1 (1-2); ALANINE AMINOTRANSFERASE,ALT 25 U/L (16-63); ALBUMIN 3.7 g/dl (3.4-5.0); ALKALINE PHOSPHATASE 141 U/L (46-116); ANION GAP 14.6 (5-15); ASPARTATE AMNIOTRANSFERASE,AST 21 U/L (15-37); BILIRUBIN TOTAL 0.3 mg/dL (0.2-1.0); BLOOD UREA NITROGEN,BUN 28 mg/dL (7-18); C-REACTIVE PROTEIN 1.02 mg/dL (<0.30); CARBON DIOXIDE,CO2 25 mEq/L (21-32); CHLORIDE,CL 112 mEq/L (98-107); CREATININE 1.4 mg/dL (0.7-1.3); ESTIMATED GFR 64 mL/min (>60); GLUCOSE RANDOM 94 mg/dL (70-99); MAGNESIUM 1.7 mg/dL (1.8-2.4); POTASSIUM,K 4.6 mEq/L (3.5-5.1); PROTEIN TOTAL,TP 7.2 g/dl (6.4-8.2); SODIUM,NA 147 mEq/L (136-145)
[2024-08-30 15:42] LABS: TROPONIN I HIGH SENSITIVITY < 4 pg/mL (<=76)
[2024-08-30 15:45] LABS: LACTIC ACID 0.8 mmol/L (0.4-2.0)
[2024-08-30] MEDS: Sodium Chloride 0.9% 1,000 ML IV ONE (16:26)
[2024-08-30 17:09] LABS: APPEARANCE,URINE CLEAR (Clear); BILIRUBIN,URINE NEGATIVE (Negative); COLOR,URINE YELLOW (Yellow); GLUCOSE,URINE NEGATIVE (Negative); KETONES,URINE NEGATIVE (Negative); LEUKOCYTE ESTERASE,URINE NEGATIVE (Negative); NITRITE,URINE NEGATIVE (Negative); OCCULT BLOOD,URINE NEGATIVE (Negative); PROTEIN,URINE 3+ (Negative); UROBILINOGEN,URINE 0.2 (0.2-1.0)
[2024-08-30 17:19] LABS: BACTERIA,URINE FEW /hpf (FEW); MUCUS,URINE FEW /hpf (FEW); RBC,URINE 0-5 /hpf (0-5); SQUAMOUS EPITHELIAL CELLS,UR 0-5 /hpf (0-5); WBC,URINE 0-5 /hpf (0-5)
== END 2024-08-30 18:45 | disposition home or self-care (01) ==
LOC: JD.ED 13:52
DX: R11.10 Vomiting, unspecified (principal); E03.9 Hypothyroidism, unspecified; Z88.8 Allergy status to other drugs, medicaments and biological substances; Z79.890 Hormone replacement therapy; Z79.899 Other long term (current) drug therapy; Z86.16 Personal history of COVID-19
CPT/HCPCS: 36415; 80053; 81001; 83605; 83735; 84484; 85025; 86140; 96360; 96361; 99284; J7030

== ENCOUNTER 2025-01-29 15:09 | Emergency (ER) | payer MEDICARE, MEDICAID ==
[2025-01-29] MEDS: cefTRIAXone 1 GM, Lidocaine 1% 2.1 ML IM ONE (17:36)
== END 2025-01-29 18:22 | disposition home or self-care (01) ==
LOC: JD.ED 15:09
DX: N30.00 Acute cystitis without hematuria (principal); G80.9 Cerebral palsy, unspecified; E03.9 Hypothyroidism, unspecified; Z88.8 Allergy status to other drugs, medicaments and biological substances; Z79.899 Other long term (current) drug therapy; Z79.890 Hormone replacement therapy; Z86.16 Personal history of COVID-19; Z90.49 Acquired absence of other specified parts of digestive tract
CPT/HCPCS: 71045; 96372; 99283; J0696; J2003